=== PATIENT | male | born 1950 | race Caucasian/White ===

== ENCOUNTER 2018-04-17 15:03 | Emergency (ER) | payer MEDICARE ==
[~2018-04-17] VITALS: Ht 185.4 cm; Wt 110.5 kg
[~2018-04-17 15:03] MED LIST: ASPI325T92 PO; CARV3.122 PO; FOLI0.8T2 PO; LISI2.5T PO; LOVA20TA2 PO; MAGN71.5 PO; VITA1TAB56 PO
[2018-04-17 15:05] VITALS: BP 150/75
[2018-04-17] MEDS ORDERED: PROPARACAINE OPHTH 0.5%, 15ML ONE (15:17)
[2018-04-17] MEDS ORDERED: FLUORESCEIN OPHTHALMIC 1 MG STRIP EACHEYE ONE (15:30)
[2018-04-17] MEDS ORDERED: PROPARACAINE OPHTH 0.5%, 15ML EACHEYE ONE (15:30)
[2018-04-17] MEDS ORDERED: HYDROcodone/APAP 5/325 TABLET ONE (16:21)
[2018-04-17] MEDS ORDERED: HYDROcodone/APAP 5/325 TABLET PO ONE (16:30)
== END 2018-04-17 16:28 | disposition home or self-care (01) ==
LOC: ED 16:22
DX: H10.022 Other mucopurulent conjunctivitis, left eye (principal); F17.200 Nicotine dependence, unspecified, uncomplicated
CPT/HCPCS: 99283

== ENCOUNTER → 2021-03-31 | Outpatient (CLI) | payer MEDICARE ==
[~2021-03-31] MED LIST changes: -FOLI0.8T2 PO; +FOLI0.8T5 PO; +REGADENOSON 0.4 MG/5 ML SYRINGE ONE
== END | disposition home or self-care (01) ==
LOC: CFH 12:55
PROVIDERS: ATTEND Internal Medicine Clinical Cardiac Electrophysiology
DX: I48.19 Other persistent atrial fibrillation (principal); I21.19 ST elevation (STEMI) myocardial infarction involving other coronary artery of inferior wall; R42 Dizziness and giddiness; E78.2 Mixed hyperlipidemia
CPT/HCPCS: 78452; 93017; A9502; J2785

== ENCOUNTER → 2021-04-14 | Outpatient (CLI) | payer MEDICARE ==
[~2021-04-14] MED LIST changes: -REGADENOSON 0.4 MG/5 ML SYRINGE ONE
== END | disposition home or self-care (01) ==
LOC: CVU 07:46
PROVIDERS: ATTEND Internal Medicine Clinical Cardiac Electrophysiology
DX: I35.8 Other nonrheumatic aortic valve disorders (principal); R42 Dizziness and giddiness; I48.19 Other persistent atrial fibrillation; E78.2 Mixed hyperlipidemia
CPT/HCPCS: 93306

== ENCOUNTER 2021-05-25 11:21 | Day surgery (SDC) | payer MEDICARE ==
[~2021-05-25] VITALS: Ht 182.9 cm; Wt 110.0 kg
[2021-05-25 12:08] VITALS: BP 123/75
[2021-05-25] MEDS ORDERED: APIX5TAB PO (12:32)
[2021-05-25] MEDS ORDERED: CARV12.52 PO (12:32)
[2021-05-25] MEDS ORDERED: ASPI-963 PO (12:32)
[2021-05-25 12:36] LABS: BASOPHILS % (AUTO) 0 % (0-1); EOSINOPHILS % (AUTO) 2 % (1-7); LYMPHOCYTES % (AUTO) 22 % (22-44); MEAN CORPUSCULAR HEMOGLOBIN 32.3 pg (27.5-34.5); MEAN CORPUSCULAR HGB CONC 33.8 g/dL (33.2-36.2); MONOCYTES % (AUTO) 7 % (2-9); NEUTROPHILS % (AUTO) 69 % (42-75); PLATELET COUNT 180 x10^3/uL (130-400); RED CELL DISTRIBUTION WIDTH 13.7 % (9.4-14.8)
[2021-05-25 12:50] LABS: ANION GAP 4 mmol/L (5-15); CALCIUM 8.6 mg/dL (8.5-10.1); CHLORIDE 111 mmol/L (98-107); CREATININE 1.07 mg/dL (0.7-1.3)
[2021-05-25] MEDS ORDERED: PROPOFOL 10 MG/ML, 20ML ONE (13:33)
== END 2021-05-25 15:12 | disposition home or self-care (01) ==
LOC: CACL 11:21
PROVIDERS: ATTEND Internal Medicine Cardiovascular Disease
DX: I48.19 Other persistent atrial fibrillation (principal); I10 Essential (primary) hypertension; E78.5 Hyperlipidemia, unspecified; F12.10 Cannabis abuse, uncomplicated; Z79.01 Long term (current) use of anticoagulants; Z79.82 Long term (current) use of aspirin; Z79.899 Other long term (current) drug therapy; Z86.718 Personal history of other venous thrombosis and embolism; Z86.711 Personal history of pulmonary embolism; Z87.891 Personal history of nicotine dependence
CPT/HCPCS: 36415; 80048; 80162; 85025; 92960; J2704

== ENCOUNTER 2021-07-04 07:22 | Day surgery (SDC) | payer MEDICARE ==
[~2021-07-04] VITALS: Ht 185.4 cm; Wt 62.3 kg
[~2021-07-04 07:22] MED LIST changes: +APIX5TAB PO; +ASPI-963 PO; +CARV12.52 PO
[2021-07-04] MEDS ORDERED: AMIO200T42 PO (07:48)
[2021-07-04] MEDS ORDERED: Vitamin D PO (07:49)
[2021-07-04 07:50] VITALS: BP 134/85
[2021-07-04 08:03] LABS: BASOPHILS % (AUTO) 0 % (0-1); EOSINOPHILS % (AUTO) 3 % (1-7); LYMPHOCYTES % (AUTO) 22 % (22-44); MEAN CORPUSCULAR HEMOGLOBIN 31.8 pg (27.5-34.5); MEAN CORPUSCULAR HGB CONC 33.2 g/dL (33.2-36.2); MEAN PLATELET VOLUME 7.9 fL (7.4-10.4); MONOCYTES % (AUTO) 7 % (2-9); NEUTROPHILS % (AUTO) 68 % (42-75); PLATELET COUNT 191 x10^3/uL (130-400); RED CELL DISTRIBUTION WIDTH 13.6 % (9.4-14.8)
[2021-07-04 08:09] LABS: ANION GAP 5 mmol/L (5-15); CALCIUM 8.1 mg/dL (8.5-10.1); CHLORIDE 109 mmol/L (98-107); CREATININE 1.27 mg/dL (0.7-1.3)
[2021-07-04] MEDS ORDERED: PROPOFOL 10 MG/ML, 20ML ONE (09:18)
== END 2021-07-04 10:21 | disposition home or self-care (01) ==
LOC: CACL 07:22
PROVIDERS: ATTEND Internal Medicine Clinical Cardiac Electrophysiology
DX: I48.19 Other persistent atrial fibrillation (principal); I10 Essential (primary) hypertension; F12.10 Cannabis abuse, uncomplicated; Z79.01 Long term (current) use of anticoagulants; Z79.899 Other long term (current) drug therapy; Z87.891 Personal history of nicotine dependence
CPT/HCPCS: 36415; 80048; 85025; 92960; 93005; J2704